=== PATIENT | female | born 1950 | race African-American/Black ===

== ENCOUNTER 2017-12-19 21:27 | Inpatient (IN) | payer MEDICARE ==
[~2017-12-19] VITALS: Ht 160 cm; Wt 41.3 kg
[2017-12-19] MEDS ORDERED: HYDR12.5 PO (22:20)
[2017-12-19] MEDS ORDERED: METF500T6 PO (22:20)
[2017-12-19] MEDS ORDERED: ATOR40TA PO (22:20)
[2017-12-19] MEDS ORDERED: LISI10TA5 PO (22:20)
[2017-12-19] MEDS ORDERED: HYDR-3326 PO (22:20)
[2017-12-19] MEDS ORDERED: ASPI81TA31 PO (22:20)
[2017-12-20 00:15] VITALS: BP 137/71
[2017-12-20] MEDS ORDERED: MAGNESIUM HYDROXIDE 30 ML LIQUID UDC PO PRN (00:15)
[2017-12-20] MEDS ORDERED: TEMAZEPAM 7.5 MG CAPSULE PO PRN (00:15)
[2017-12-20] MEDS ORDERED: ACETAMINOPHEN 325 MG TABLET PO PRN (00:15)
[2017-12-20] MEDS ORDERED: MAG HYDROX/AL HYDROX/SIMETH 30 ML LIQUID UDC PO PRN (00:15)
[2017-12-20 01:38] LABS: *BILIRUBIN,URIN NEGATIVE (NEGATIVE); *BLOOD, URINE Trace-intact (NEGATIVE); *CLARITY,URINE CLEAR (CLEAR); *COLOR,URINE YELLOW (YELLOW); *KETONES,URINE TRACE (NEGATIVE); *PROTEIN,URINE TRACE (NEGATIVE); *UROBILINOGEN,URINE 0.2 E.U./dl (NORMAL); LEUKOCYTE ESTERASE ,URINE 1+ (NEGATIVE); NITRITE, URINE NEGATIVE (NEGATIVE); UGLUCOSE NEGATIVE (NEGATIVE)
[2017-12-20 01:51] LABS: BACTERIA,URINE NONE SEEN /HPF (NONE SEEN); RBC,URINE 0-3 /HPF (0-3); SQUAMOUS EPITHELIAL CELL,UR FEW /HPF (NONE SEEN)
[2017-12-20] MEDS: SULFAMETH/TRIMETH 800/160 MG TABLET PO SCH ×2 (09:54→20:59)
[2017-12-20] MEDS ORDERED: DEXTROSE 50% 50 ML DISP.SYRIN IV PRN (11:45)
[2017-12-20] MEDS ORDERED: HYDROCODONE/APAP 5-325MG TABLET PO PRN (11:45)
[2017-12-20] MEDS: OLANZAPINE ZYDIS 5 MG TAB.RAPDIS PO SCH (12:37)
[2017-12-20] MEDS ORDERED: CEPHALEXIN MONOHYDRATE 500 MG CAPSULE PO SCH (14:00)
[2017-12-20 15:47] VITALS: BP 127/50
[2017-12-20] MEDS: BLOOD SUGAR DIAGNOSTIC 1 EACH STRIP VI SCH ×2 (16:38→20:59)
[2017-12-20] MEDS: INSULIN REGULAR, HUMAN 300 UNIT/3 ML VIAL SQ PRN (16:43)
[2017-12-20] MEDS: METFORMIN HCL 500 MG TABLET PO SCH (17:16)
[2017-12-20 20:01] VITALS: BP 108/56
[2017-12-20] MEDS: ATORVASTATIN 40 MG TABLET PO SCH (20:59)
[2017-12-21] MEDS: BLOOD SUGAR DIAGNOSTIC 1 EACH STRIP VI SCH ×4 (06:11→21:00)
[2017-12-21 07:30] VITALS: BP 133/68
[2017-12-21 07:58] LABS: BILIRUBIN,TOTAL 0.2 mg/dL (0.2-1.0); CREATININE 1.3 mg/dL (0.6-1.3); MAGNESIUM 1.9 mg/dL (1.8-2.4); PHOSPHOROUS 3.7 mg/dL (2.5-4.9); POTASSIUM 3.9 mmol/L (3.5-5.1); TOTAL PROTEIN, SERUM 7.3 g/dL (6.4-8.2)
[2017-12-21 08:02] LABS: BASOPHILS # (AUTO) 0.1 K/uL (0.0-8.0); BASOPHILS % (AUTO) 1.1 % (0.0-2.0); EOSINOPHILS # (AUTO) 0.1 K/uL (0.0-0.7); EOSINOPHILS % (AUTO) 2.4 % (0.0-7.0); HEMATOCRIT 34.2 % (31.2-41.9); HEMOGLOBIN 11.4 g/dL (10.9-14.3); LYMPHOCYTES % (AUTO) 35.7 % (20.5-51.5); MEAN CORPUSCULAR HEMOGLOBIN 28.4 uug (24.7-32.8); MEAN CORPUSCULAR HGB CONC 33 g/dL (32.3-35.6); MEAN CORPUSCULAR VOLUME 85.8 fL (75.5-95.3); MONOCYTES # (AUTO) 0.5 K/uL (2.0-10.0); MONOCYTES % (AUTO) 9.6 % (0.0-11.0); NEUTROPHILS # (AUTO) 2.8 K/uL (1.8-8.9); NEUTROPHILS % (AUTO) 51.2 % (38.5-71.5); PLATELET COUNT (AUTO) 265 K/uL (179-408); RED BLOOD CELL COUNT(AUTO) 3.99 MIL/uL (3.63-4.92); WHITE BLOOD COUNT (AUTO) 5.5 K/uL (3.8-11.8)
[2017-12-21 08:39] LABS: THYROID STIMULATING HORMONE 1.262 mIU/mL (0.358-3.740)
[2017-12-21] MEDS: OLANZAPINE ZYDIS 5 MG TAB.RAPDIS PO SCH (09:47)
[2017-12-21] MEDS: ASPIRIN 81 MG TAB.CHEW PO SCH (09:47)
[2017-12-21] MEDS: METFORMIN HCL 500 MG TABLET PO SCH ×2 (09:47→17:35)
[2017-12-21] MEDS: SULFAMETH/TRIMETH 800/160 MG TABLET PO SCH ×2 (09:47→21:43)
[2017-12-21] MEDS: HYDROCHLOROTHIAZIDE 12.5 MG CAPSULE PO SCH (09:47)
[2017-12-21] MEDS: OMEGA-3 FATTY ACIDS/FISH OIL CAPSULE PO SCH ×2 (12:11→21:43)
[2017-12-21 15:15] VITALS: BP 117/62
[2017-12-21 20:39] VITALS: BP 147/73
[2017-12-21] MEDS: ATORVASTATIN 40 MG TABLET PO SCH (21:43)
[2017-12-21] MEDS ORDERED: LORAZEPAM 2 MG/1 ML VIAL IM ONE (21:45)
[2017-12-21] MEDS ORDERED: OLANZAPINE 10 MG VIAL IM ONE (21:45)
[2017-12-22] MEDS: BLOOD SUGAR DIAGNOSTIC 1 EACH STRIP VI SCH ×4 (06:52→20:24)
[2017-12-22 07:30] VITALS: BP 137/71
[2017-12-22] MEDS: METFORMIN HCL 500 MG TABLET PO SCH ×2 (08:48→17:18)
[2017-12-22] MEDS: OLANZAPINE ZYDIS 5 MG TAB.RAPDIS PO SCH (08:48)
[2017-12-22] MEDS: ASPIRIN 81 MG TAB.CHEW PO SCH (08:48)
[2017-12-22] MEDS: HYDROCHLOROTHIAZIDE 12.5 MG CAPSULE PO SCH (08:48)
[2017-12-22] MEDS: OMEGA-3 FATTY ACIDS/FISH OIL CAPSULE PO SCH ×2 (08:48→20:23)
[2017-12-22] MEDS: SULFAMETH/TRIMETH 800/160 MG TABLET PO SCH ×2 (08:49→20:23)
[2017-12-22] MEDS: CLONAZEPAM 0.5 MG TABLET PO PRN (16:43)
[2017-12-22 17:39] VITALS: BP 143/63
[2017-12-22] MEDS: ATORVASTATIN 40 MG TABLET PO SCH (20:23)
[2017-12-22 20:26] VITALS: BP 145/73
[2017-12-22] MEDS ORDERED: OLANZAPINE 2.5 MG TABLET PO SCH (21:00)
[2017-12-23] MEDS: BLOOD SUGAR DIAGNOSTIC 1 EACH STRIP VI SCH ×4 (07:00→20:26)
[2017-12-23 07:30] VITALS: BP 114/53
[2017-12-23] MEDS: ASPIRIN 81 MG TAB.CHEW PO SCH (08:43)
[2017-12-23] MEDS: HYDROCHLOROTHIAZIDE 12.5 MG CAPSULE PO SCH (08:43)
[2017-12-23] MEDS: SULFAMETH/TRIMETH 800/160 MG TABLET PO SCH ×2 (08:43→20:15)
[2017-12-23] MEDS: OMEGA-3 FATTY ACIDS/FISH OIL CAPSULE PO SCH ×2 (08:43→20:15)
[2017-12-23] MEDS: OLANZAPINE ZYDIS 5 MG TAB.RAPDIS PO SCH (08:43)
[2017-12-23] MEDS: METFORMIN HCL 500 MG TABLET PO SCH ×2 (08:43→17:27)
[2017-12-23 16:19] VITALS: BP 111/58
[2017-12-23] MEDS: ATORVASTATIN 40 MG TABLET PO SCH (20:15)
[2017-12-23] MEDS: INSULIN REGULAR, HUMAN 300 UNIT/3 ML VIAL SQ PRN (20:57)
[2017-12-23] MEDS ORDERED: OLANZAPINE 2.5 MG TABLET PO SCH (21:00)
[2017-12-23] MEDS ORDERED: OLANZAPINE 5 MG TABLET PO SCH (21:00)
[2017-12-24] MEDS: BLOOD SUGAR DIAGNOSTIC 1 EACH STRIP VI SCH ×3 (06:43→17:03)
[2017-12-24 07:30] VITALS: BP 149/96
[2017-12-24] MEDS: OLANZAPINE ZYDIS 5 MG TAB.RAPDIS PO SCH (08:28)
[2017-12-24] MEDS: OMEGA-3 FATTY ACIDS/FISH OIL CAPSULE PO SCH ×2 (08:28→21:20)
[2017-12-24] MEDS: ASPIRIN 81 MG TAB.CHEW PO SCH (08:28)
[2017-12-24] MEDS: SULFAMETH/TRIMETH 800/160 MG TABLET PO SCH ×2 (08:28→21:20)
[2017-12-24] MEDS: HYDROCHLOROTHIAZIDE 12.5 MG CAPSULE PO SCH (08:28)
[2017-12-24] MEDS: METFORMIN HCL 500 MG TABLET PO SCH ×2 (08:28→18:01)
[2017-12-24] MEDS ORDERED: INSULIN REGULAR, HUMAN 300 UNIT/3 ML VIAL SQ PRN (12:15)
[2017-12-24] MEDS ORDERED: DEXTROSE 50% 50 ML DISP.SYRIN IV PRN (12:15)
[2017-12-24 20:00] VITALS: BP 131/65
[2017-12-24] MEDS ORDERED: OLANZAPINE 5 MG TABLET PO SCH (21:00)
[2017-12-24] MEDS: ATORVASTATIN 40 MG TABLET PO SCH (21:20)
[2017-12-24] MEDS: OLANZAPINE 2.5 MG TABLET PO SCH (21:20)
[2017-12-25] MEDS: BLOOD SUGAR DIAGNOSTIC 1 EACH STRIP VI SCH ×2 (06:55→16:30)
[2017-12-25 07:30] VITALS: BP 138/63
[2017-12-25] MEDS: METFORMIN HCL 500 MG TABLET PO SCH ×2 (10:01→16:53)
[2017-12-25] MEDS: SULFAMETH/TRIMETH 800/160 MG TABLET PO SCH ×2 (10:01→20:35)
[2017-12-25] MEDS: OMEGA-3 FATTY ACIDS/FISH OIL CAPSULE PO SCH ×2 (10:01→20:42)
[2017-12-25] MEDS: OLANZAPINE ZYDIS 5 MG TAB.RAPDIS PO SCH (10:02)
[2017-12-25] MEDS: ASPIRIN 81 MG TAB.CHEW PO SCH (10:02)
[2017-12-25] MEDS: HYDROCHLOROTHIAZIDE 12.5 MG CAPSULE PO SCH (10:02)
[2017-12-25 16:30] VITALS: BP 145/60
[2017-12-25] MEDS: OLANZAPINE 2.5 MG TABLET PO SCH (20:35)
[2017-12-25] MEDS: ATORVASTATIN 40 MG TABLET PO SCH (20:35)
[2017-12-25 21:18] VITALS: BP 127/59
[2017-12-26] MEDS: BLOOD SUGAR DIAGNOSTIC 1 EACH STRIP VI SCH ×2 (06:44→16:30)
[2017-12-26 07:30] VITALS: BP 139/63
[2017-12-26] MEDS: HYDROCHLOROTHIAZIDE 12.5 MG CAPSULE PO SCH (09:47)
[2017-12-26] MEDS: METFORMIN HCL 500 MG TABLET PO SCH ×2 (09:48→17:13)
[2017-12-26] MEDS: OMEGA-3 FATTY ACIDS/FISH OIL CAPSULE PO SCH ×2 (09:48→20:03)
[2017-12-26] MEDS: SULFAMETH/TRIMETH 800/160 MG TABLET PO SCH ×2 (09:48→20:03)
[2017-12-26] MEDS: ASPIRIN 81 MG TAB.CHEW PO SCH (09:48)
[2017-12-26] MEDS: OLANZAPINE ZYDIS 5 MG TAB.RAPDIS PO SCH (09:49)
[2017-12-26] MEDS: CLONAZEPAM 0.5 MG TABLET PO PRN (15:56)
[2017-12-26 16:04] VITALS: BP 129/69
[2017-12-26 20:00] VITALS: BP 96/59
[2017-12-26] MEDS: OLANZAPINE 2.5 MG TABLET PO SCH (20:03)
[2017-12-26] MEDS: ATORVASTATIN 40 MG TABLET PO SCH (20:03)
[2017-12-27 07:30] VITALS: BP 140/64
[2017-12-27] MEDS: METFORMIN HCL 500 MG TABLET PO SCH ×2 (09:07→17:26)
[2017-12-27] MEDS: OLANZAPINE ZYDIS 5 MG TAB.RAPDIS PO SCH (09:07)
[2017-12-27] MEDS: OMEGA-3 FATTY ACIDS/FISH OIL CAPSULE PO SCH ×2 (09:07→20:32)
[2017-12-27] MEDS: HYDROCHLOROTHIAZIDE 12.5 MG CAPSULE PO SCH (09:08)
[2017-12-27] MEDS: ASPIRIN 81 MG TAB.CHEW PO SCH (09:08)
[2017-12-27 19:50] VITALS: BP 122/60
[2017-12-27] MEDS: ATORVASTATIN 40 MG TABLET PO SCH (20:32)
[2017-12-27] MEDS: OLANZAPINE 2.5 MG TABLET PO SCH (20:33)
[2017-12-28] MEDS: CLONAZEPAM 0.5 MG TABLET PO PRN (05:11)
[2017-12-28 07:30] VITALS: BP 157/80
[2017-12-28 07:51] LABS: BILIRUBIN,TOTAL 0.4 mg/dL (0.2-1.0); CREATININE 1.2 mg/dL (0.6-1.3); MAGNESIUM 1.7 mg/dL (1.8-2.4); POTASSIUM 3.5 mmol/L (3.5-5.1); TOTAL PROTEIN, SERUM 7.4 g/dL (6.4-8.2)
[2017-12-28] MEDS: HYDROCHLOROTHIAZIDE 12.5 MG CAPSULE PO SCH (08:17)
[2017-12-28] MEDS: METFORMIN HCL 500 MG TABLET PO SCH ×2 (08:17→18:01)
[2017-12-28] MEDS: ASPIRIN 81 MG TAB.CHEW PO SCH (08:17)
[2017-12-28] MEDS: OMEGA-3 FATTY ACIDS/FISH OIL CAPSULE PO SCH ×2 (08:17→21:00)
[2017-12-28] MEDS: OLANZAPINE ZYDIS 5 MG TAB.RAPDIS PO SCH (08:17)
[2017-12-28 08:20] LABS: BASOPHILS # (AUTO) 0.1 K/uL (0.0-8.0); BASOPHILS % (AUTO) 0.8 % (0.0-2.0); EOSINOPHILS # (AUTO) 0.1 K/uL (0.0-0.7); EOSINOPHILS % (AUTO) 1.8 % (0.0-7.0); HEMOGLOBIN 11.1 g/dL (10.9-14.3); LYMPHOCYTES # (AUTO) 1.6 K/uL (20.0-40.0); LYMPHOCYTES % (AUTO) 25.4 % (20.5-51.5); MEAN CORPUSCULAR HEMOGLOBIN 28.8 uug (24.7-32.8); MEAN CORPUSCULAR HGB CONC 34 g/dL (32.3-35.6); MEAN CORPUSCULAR VOLUME 85.5 fL (75.5-95.3); MONOCYTES # (AUTO) 0.6 K/uL (2.0-10.0); MONOCYTES % (AUTO) 9.6 % (0.0-11.0); NEUTROPHILS # (AUTO) 3.9 K/uL (1.8-8.9); NEUTROPHILS % (AUTO) 62.4 % (38.5-71.5); PLATELET COUNT (AUTO) 277 K/uL (179-408); RED BLOOD CELL COUNT(AUTO) 3.86 MIL/uL (3.63-4.92); WHITE BLOOD COUNT (AUTO) 6.3 K/uL (3.8-11.8)
[2017-12-28] MEDS ORDERED: MAGNESIUM OXIDE 400 MG TABLET PO ONE (12:15)
[2017-12-28 15:47] VITALS: BP 108/63
[2017-12-28 20:29] VITALS: BP 136/67
[2017-12-28] MEDS ORDERED: OLANZAPINE 2.5 MG TABLET PO SCH (21:00)
[2017-12-28] MEDS ORDERED: OLANZAPINE 5 MG TABLET PO SCH (21:00)
[2017-12-28] MEDS: ATORVASTATIN 40 MG TABLET PO SCH (21:00)
[2017-12-29 07:30] VITALS: BP 159/72
[2017-12-29] MEDS: METFORMIN HCL 500 MG TABLET PO SCH (08:00)
[2017-12-29] MEDS: OMEGA-3 FATTY ACIDS/FISH OIL CAPSULE PO SCH (09:00)
[2017-12-29] MEDS: HYDROCHLOROTHIAZIDE 12.5 MG CAPSULE PO SCH (09:00)
[2017-12-29] MEDS: ASPIRIN 81 MG TAB.CHEW PO SCH (09:00)
[2017-12-29] MEDS: OLANZAPINE ZYDIS 5 MG TAB.RAPDIS PO SCH (09:32)
== END 2017-12-29 14:30 | DRG 885 ==
LOC: ER 21:33 → GPS 23:27 → EDBD 23:27 → GPS 12-21 21:33
PROVIDERS: ADMIT Psychiatry & Neurology Psychiatry; ATTEND Internal Medicine
DX: F23 Brief psychotic disorder (principal); F03.90 Unspecified dementia, unspecified severity, without behavioral disturbance, psychotic disturbance, mood disturbance, and anxiety; E11.65 Type 2 diabetes mellitus with hyperglycemia; Z90.49 Acquired absence of other specified parts of digestive tract; E78.00 Pure hypercholesterolemia, unspecified; E78.5 Hyperlipidemia, unspecified; Z79.82 Long term (current) use of aspirin; Z79.84 Long term (current) use of oral hypoglycemic drugs; I10 Essential (primary) hypertension
CPT/HCPCS: 36415; 71045; 72170; 83735; 84100; 84443; 85025; 87086; 93005; A4663; J1815